=== PATIENT | female | born 1970 | race Caucasian/White ===

== ENCOUNTER 2022-04-06 09:27 | Outpatient (CLI) | payer OTHER, SELFPAY ==
[2022-04-06 14:53] LABS: Cholesterol* 165 mg/dL (90-199); Glucose* 90 mg/dL (60-115); HDL Cholesterol* 86 mg/dL (>=50); LDL Cholesterol Calculated 60 mg/dL (<100); Triglycerides* 97 mg/dL (40-149)
== END 2022-04-06 09:28 | disposition home or self-care (01) ==
LOC: NFLDREF 09:27
PROVIDERS: Visit Provider Physician Assistant
DX: Z13.6 Encounter for screening for cardiovascular disorders (principal); Z13.1 Encounter for screening for diabetes mellitus
CPT/HCPCS: 80061; 82947

== ENCOUNTER 2023-08-26 14:18 | Outpatient (CLI) | payer OTHER, SELFPAY ==
--- OUTSIDE RECORDS SUMMARY | 2023-08-26 14:20 | XMS_ITS ---
Author Organization [facility] Address [address] [place] [address] Care Team Providers Care Glass Forming Engineer Name Role Phone Unavailable Unavailable Unavailable Surgery Details Not on file Complications Check Surgery Details section. Procedure Estimated Blood Loss Check Surgery Details section. Procedure Findings Check Surgery Details section. Procedure Specimens Taken Check Surgery Details section.
--- OUTSIDE RECORDS SUMMARY | 2023-08-26 14:20 | XMS_ITS | Encounter Summary ---
Author Organization [facility] Address [address] [place] [address] Care Team Providers Care Work Counselor Name Role Phone Filiberto Hinton APRN, C.N.P. Primary Care Provid er Encounter Details Date Type Department Care Team (Late st Contact Info) Description 07/23/2023 Orders Only [facility] Filiberto Hinton, PRISCILLA, C.N.P. [address] [place] [address] Screening Examination Diabetes Mellitus; Screening Lipid Social History Tobacco Use Types Packs/Day Years Used Date Smoking Tobacco: Never Smokeless Tobacco: Never Alcohol Use Standard Drinks/Week Comments Yes 1 (1 standard drink = 0.6 oz pur e alcohol) PHQ-2 Answer Date Recorded PHQ-2 Score 0 08/25/2018 Nutrition Answer Date Recorded Nutrition: EVOO Fat Source Unknown 05/15 Nutrition: Servings of Fruits/Vegetables per Day Not on file 05/15/2020 Dental Answer Date Recorded Dental: Regular Dentist Unknown 05/15/19 21 Sex and Gender Information Value Date Recorded Sex Assigned at Female 06/20/2018 9:27 AM CDT Gender Identity Female 06/20/2018 9:27 AM CDT Sexual Orientation Straight 06/20/2018 9: 27 AM CDT documented as of this encounter Plan of Treatment Scheduled Orders Name Type Priority Associated Diagnoses Orde r Schedule Glucose, Fasting Lab Routine Screening Examination Diabetes Mellitus Expected: 08/06/2023, Expires: 01/19/2024 Lipid Panel Lab Routine Screening Lipid Expected: 08/06/2023, Expires: 01/19/2024 documented as of this encounter Visit Diagnoses Diagnosis Screening Examination Diabetes Mellitus Screening Lipid documented in this encounter Care Teams Work Counselor Relationship Specialty Start Date End Date Filiberto Hinton APRN, C.N.P. [address] [place] [phone] PCP - General 10/01/18 documented as of this encounter
--- OUTSIDE RECORDS SUMMARY | 2023-08-26 14:20 | XMS_ITS | Clinical Summary ---
Author Organization [facility] Address [address] [place] [address] Care Team Providers Care Manager Cosmetic Name Role Phone Filiberto Hinton APRN C.N.P. Primary Care Provid er Source Comments Patient records contain information from all sites at [facility]. For routine questions regarding patient records, call [phone] during business hours, M-F 8:00 AM - 5:00 PM Central Time. Record requests for emergency care only can be directed to [phone] at any time.[facility] Allergies No known active allergies Medications Medication Sig Dispensed Refills Start Date End Date Status Kelnor , 28, 1-35 mg-mcg per tabletIndications:M anagement Contraception Prescription Take 1 tablet by mouth once daily 84 tablet 06/11/2019 Active ferrous sulfate 325 mg (65 mg iron) tabletIndications:A nemia Iron Deficiency Take 1 tablet by mouth once daily 30 tablet 07/23/2019 Active SUMAtriptan (IMITREX) 50 mg tabletIndications:M igraine Headache Take 1 tablet (50 mg total) by mouth once as needed for migraine for up to 1 dose. May repeat in 2 hours if no relief. Max 2 doses/24 hrs 18 tablet 08/28/2019 Active valACYclovir (VALTREX) 1000 mg tablet Take 2 tablets (2,000 mg total) by mouth 2 (two) times a day. 4 tablet 11 08/05/2023 Active multivitamin chewable tablet Chew 1 Dose daily. 06/28/2005 4 Discontinued valACYclovir (VALTREX) 500 mg tablet TAKE 2 TABLETS BY MOUTH EVERY 12 HOURS FOR 2 DAYS. TAKE DURING OUTBREAKS 07/23/2023 Discontinued Active Problems Problem Noted Date Diagnosed Date Herpes Simplex Labialis 08/05/2023 Management Contraception Prescription 06/20/2018 Anemia Iron Deficiency 06/20/2018 Migraine Headache 07/29/2013 Encounters Date Type Department Care Team Description 08/05/2023 4:00 PM CDT Office Visit Department of [facility], [facility], in [place], [place] [address] [phone] Filiberto Hinton, PRISCILLA, C.N.P. Preoperative Exam (Primary Dx); Herpes Simplex Labialis 07/23/2023 Orders Only [facility] MNT Filiberto Hinton, PRISCILLA, C.N.P. Screening Examination Diabetes Mellitus; Screening Lipid 06/05/2023 Clinical Communication Department of [facility], [facility], [place], [place] [address] [phone] Filiberto Hinton, PRISCILLA, C.N.P. COLONOSCOPY ORDER 06/03/2023 Clinical Communication Department of [facility], [facility], in [place], [place] [address] [phone] Filiberto Hinton, PRISCILLA, C.N.P. from Last 3 Months Immunizations Name Administration Dates Next Due DTaP (Infanrix, Tripedia) 07/13/2008 Influenza, Seasonal, Injectable 12/04/2011,12/19,12/26/2009 Influenza, Unspecified 05/02/2016,12/26/2009 SARS-COV-2 (COVID-19) - OLIVIA TOLEDO (J&J)(Discontinued) 06/23/2020 influenza vaccine quad (FLUZ ONE/FLUARIX) (6 months and older)(PF) 05/02/2016 Family History * Patient is adopted Medical History Relation Name Comments Diabetes Father Hypertension Father Cancer Maternal Grandfather Cancer Maternal Grandmother Cancer Paternal Grandfather Cancer Paternal Grandmother Relation Name Status Comments Father Maternal Grandfather Maternal Grandmother Paternal Grandfather Paternal Grandmother Social History Tobacco Use Types Packs/Day Years Used Date Smoking Tobacco: Never Smokeless Tobacco: Never Comments:Never Alcohol Use Standard Drinks/Week Comments Yes 1 (1 standard drink = 0.6 oz pur e alcohol) [facility] Utilities Answer Date Recorded In the past 12 months has th e electric, gas, oil, or water company threatened to shut off services in your home? No 07/30/2023 PHQ-2 Answer Date Recorded PHQ-2 Score 0 07/30/2023 Exercise Vital Sign Answer Date Recorde d On average, how many days pe r week do you engage in moderate to strenuous exercise (like a brisk walk)? 5 days 07/30/2023 On average, how many minutes do you engage in exercise at this level? 40 min 07/30/2023 Hunger Vital Sign Answer Date Recorded Within the past 12 months, y ou worried that your food would run out before you got the money to buy more. Never true 07/30/19 Within the past 12 months, t he food you bought just didn't last and you didn't have money to get more. Never true 07/30/2023 PRAPARE - Transportation Answer Date Re corded In the past 12 months, has l ack of transportation kept you from medical appointments or from getting medications? No 07/16 In the past 12 months, has l ack of transportation kept you from meetings, work, or from getting things needed for daily living? No 07/30/2023 Nutrition Answer Date Recorded On average, how many serving s of fruits and vegetables do you eat per day (serving size is equal to 1 cup or approximately the size of a tennis ball)? 3-5 07/30/2023 Dental Answer Date Recorded Dental: Regular Dentist Yes 07/30/19 Employment Answer Date Recorded Employment status Retired 07/30/2023 Housing Stability Answer Date Recorded What is your living situation today? I have a [facility] place to live 07/30/2023 Sex and Gender Information Value Date Recorded Sex Assigned at Female 06/20/2018 9:27 AM CDT Gender Identity Female 06/20/2018 9:27 AM CDT Sexual Orientation Straight 06/20/2018 9: 27 AM CDT Last Filed Vital Signs Vital Sign Reading Time Taken Comments Blood Pressure 123/67 08/05/2023 3:43 PM CDT Pulse 51 08/05/2023 3:43 PM CDT Temperature 36.9 ??C (98.4 ??F) 06/20/2018 1 0:15 AM CDT Respiratory Rate 16 06/20/2018 10:1 5 AM CDT Oxygen Saturation - - Inhaled Oxygen Concentration - - Weight 76.1 kg (167 lb 12.3 oz) 08/05/2023 3:43 PM CDT Height 176 cm (5' 9.29) 08/05/2023 3:43 PM CDT Body Mass Index 24.57 08/05/2023 3:43 PM CDT Plan of Treatment Health Maintenance Due Date Last Done Comments CT Colonography 1972 Cologuard 1970 FIT 1970 HIV Screening 1970 Hepatitis C Screening 1970 Hepatitis B Vaccines (1 of 3 - 19+ 3-dose series) 08/18/1991 Mammogram 06/21/2019 06/20/2018, 05/2017, 05/08/2016, Additional history exists Fasting Glucose for Diabetes Screening 06/18/2020 06/18/2017, 12/18/2012 Lipid (Cholesterol) Screening 06/18/2022 06/18/2017, 12/18/2012 Zoster Vaccines (1 of 2) 2022 COVID-19 Vaccine ( - 2022- season) 2022 01/19/2021, 06/23/2020 Influenza Vaccine (#1) 2022 7, 05/02/2016, 12/04/2011, Additional history exists Cervical Cancer Screening 08/20/20242019, 03/30/2015, 12/16/2012, Additional history exists DTaP,Tdap,and Td Vaccines (3 - Tdap) 05/02/2033 05/02/2023, 07/13/2008 Colonoscopy 08/12/2033 08/13/2023 Colorectal Cancer Screening 08/12/2033 Depression Screening (Annual PHQ-2) Completed 08/05/2023, 07/30/2023 Pneumococcal vaccine (0-64 years) Aged Out No longer eligible based on patient's age to complete this topic Procedures Procedure Name Priority Date/Time Associated Diagnosis Comments OUTSIDE PHOTO Routine 08/13/2023 12:00 AM CDT BI BREAST SCREENING BILATERAL WITH TOMOSYNTHESIS RAD - Routine (most inpatients and all outpatients) 06/20/2018 11:50 AM CDT Screening Mammogram Breast Cancer GLUCOSE, FASTING, S/P Routine 06/18/2017 10:44 AM CDT Health Maintenance Examination Adult LIPID PANEL, S Routine 06/18/2017 10:44 AM CDT Health Maintenance Examination Adult PATHOLOGY DIRECTOR OF PHYSICIAN PRACTICES CYTOLOGY Routine 03/30/2015 12:00 AM BUSINESS SERVICES OFFICER from Last 3 Months or Most Recently Relevant to Health Maintenance Results * Colon-Outside Photo (08/13/2023 12:00 AM CDT) Narrative [facility] - 08/16/2023 3:29 PM CDT This order has been created and auto-finalized to support the import of outside images. If available, original interpretation can be found on the Media Tab in Chart Review, in Document Viewer, or as an image in QREADS. If a re-interpretation or overread is required please follow defined workflow. ?? Provider Not In System IMG NON RAD IMAGI NG PROCEDURES [facility] NA * BI Breast Screening Bilateral with Tomosynthesis (06/20/2018 11:50 AM CDT) Anatomical Region Laterality Modality Breast, Breast Imaging RST L OS, Breast Imaging ARZ LOS, Breast Imaging FLA LOS Bilateral Mammography 06/20/2018 3:09 PM CDT Impressions 06/20/2018 3:13 PM CDT IMPRESSION: ??Negative. RECOMMENDATION: ??Annual Screening Mammogram ASSESSMENT: ??BI-RADS: 1: Negative. Narrative 06/20/2018 3:13 PM CDT EXAM: ??BI BREAST SCREENING BILATERAL WITH TOMOSYNTHESIS Current study was evaluated with a Computer Aided Detection (CAD) system. INDICATION: ??Screening mammogram. COMPARISON: ??Prior exam(s) were available and reviewed for comparison. DENSITY: ??c. The breast(s) are heterogeneously dense, which may obscure small masses. FINDINGS: ??No mammographic findings of malignancy. Procedure Note Lenora Vergara M.D. - 06/20/2018 EXAM: BI BREAST SCREENING BILATERAL WITH TOMOSYNTHESIS Current study was evaluated with a Computer Aided Detection (CAD) system. INDICATION: Screening mammogram. COMPARISON: Prior exam(s) were available and reviewed for comparison. DENSITY: c. The breast(s) are heterogeneously dense, which may obscuresmall masses. FINDINGS: No mammographic findings of malignancy. IMPRESSION: Negative. RECOMMENDATION: Annual Screening Mammogram ASSESSMENT: BI-RADS: 1: Negative. Beryl Martínez M.D. [facility] [place] BI PROCEDURE S * (ABNORMAL) Lipid Panel (06/18/2017 10:44 AM CDT) Cholesterol, Total 230(H) mg/dL 2017 12:12 PM CDT [facility] Comment: ----REFERENCE VALUE---- Desirable: < 200 Borderline high: 200 - 239 High: > or = 240 Triglycerides 77 mg/dL 06/18/2017 12:12 PM CDT [facility] Comment: ----REFERENCE VALUE---- Normal: <150 Borderline high: 150-199 High: 200-499 Very high: > or =500 Cholesterol, HDL, S 109 >=50 mg/dL 06/18/2017 12:12 PM CDT [facility] Calculated LDL 106 mg/dL 06/18/2017 12:12 PM CDT [facility] Comment: ----REFERENCE VALUE---- Desirable: <100 Above Desirable: 100-129 Borderline high: 130-159 High: 160-189 Very high: > or =190 Cholesterol, Non-HDL, Calculated 121 mg/dL 06/18/2017 12:12 PM CDT [facility] Comment: ----REFERENCE VALUE---- Desirable: <130 Above Desirable: 130-159 Borderline high: 160-189 High: 190-219 Very high: > or =220 Blood (Blood, Venous) 06/18/2017 10:44 AM CDT 06/18/2017 10:51 AM CDT Speedy Strickland P.A.-C. LAB BLOOD ADD-ON Performing Organization Address City/[facility]/ZIP Co de Phone Number [facility] [address] [place], [place] [address] * Glucose, Fasting (06/18/2017 10:44 AM CDT) Glucose, Fasting, S 93 70 - 99 mg/dL 06/18/2017 12:12 PM CDT [facility] Blood (Blood, Venous) 06/18/2017 10:44 AM CDT 06/18/2017 10:51 AM CDT Speedy Strickland P.A.-C. LAB BLOOD NON AD D-ON Performing Organization Address City/[facility] Co de Phone Number [facility] [address] [place], [place] [address] * Pathology DIRECTOR OF PHYSICIAN PRACTICES Cytology (03/30/2015 12:00 AM BUSINESS SERVICES OFFICER) 03/30/2015 Narrative [facility] - 04/08/2015 12:53 PM BUSINESS SERVICES OFFICER [facility] in [address] [place], [place] ??[phone] Patient Name: PRICE ALBRECHT Collected: 03/30/2015 Address: City/State/Zip: [address] [place] [address] ??[phone] Received: Reported: 03/31/2015 04/08/2015 Soc. Sec. #: ?/Age/Sex 1970 (Age: 44) ??F Physician(s): Miesha MEDRANO Copy To: ? [facility] ??[id number] [address] [facility] CYTOPATHOLOGY DIRECTOR OF PHYSICIAN PRACTICES REPORT FINAL CYTOLOGIC DIAGNOSIS Pap Smear - ThinPrep with HPV: NEGATIVE FOR INTRAEPITHELIAL LESION OR MALIGNANCY SPARSE TO NO ENDOCERVICAL COMPONENT PRESENT. SATISFACTORY SPECIMEN FOR EVALUATION. Electronically Signed Out By dls/04/08/[address] [facility] [address](ASCP) The Pap test is a screening procedure and, as such, is subject to both false positive and false negative results as evidenced by published data. ??It is not a diagnostic test and results should be interpreted in the context of the patient's history and other clinical findings. ??Obtaining periodic Pap tests may help to minimize the consequences of any false negatives that may occur. Procedures/Addenda: HUMAN PAPILLOMA VIRUS ADDENDUM ? Date Ordered: ? 03/31/2015 ? Status: ??Signed Out Date Complete: ? 04/08/2015 ? By: ??[facility](ASCP) Date Reported: ? 04/08/2015 INTERPRETATION: Test: Aptima High Risk HPV Result: NEGATIVE FOR HIGH RISK HPV Specimen Description: ThinPrep? ? ? Pap Test PreservCyt Solution HPV by [employer]-Mediated Amplification (TMA) for E6/E7 viral messenger RNA (mRNA) is an in-vitro diagnostic test for the detection of 14 high-risk Human Papillomavirus (HPV) types (16, 18, 31, 33, 35, 39, 45, 51, 52, 56, 58, 59, 66, and 68) in cervical specimen. Intended for co-testing or reflex testing of ASC-US Pap smears. Interpretation for patients with ASC-US cytology: Low likelihood of underlying high-grade CIN2-3 or cancer; results are not intended to prevent women from proceeding to colposcopy. Interpretation for patients with NILM cytology who are over 30 years old: Very low likelihood of underlying high-grade ASHLEY or cancer; results do not preclude future HPV infection or cytologic abnormalities with underlying CIN2-3 or cancer. SPECIMEN(S) RECEIVED: Pap Smear - ThinPrep with HPV CLINICAL HISTORY: CONTROL Date of Last Menstrual Period: 03/14/2015 Hormonal History: Hormone therapy Other Clinical Conditions: HPV TYPING REQUESTED Radha Medrano P.A.-C. LAB PAP COPATH ORDERABLES [facility] from Last 3 Months or Most Recently Relevant to Health Maintenance Care Teams Manager Cosmetic Relationship Specialty Start Date End Date Filiberto Hinton, PRISCILLA, C.N.P. [address] [place] [phone] PCP - General 10/01/18
--- OUTSIDE RECORDS SUMMARY | 2023-08-26 14:20 | XMS_ITS | Encounter Summary ---
Author Organization [facility] Address [address] [place] [address] Care Team Providers Care Break Out Man Name Role Phone Filiberto Hinton APRN, C.N.P. Primary Care Provid er Reason for Visit * Reason Comments Pre-op Exam Colonoscopy * Appointment Request (Routine) - Closed Specialty Diagnoses / Procedures Referred By Contanny t Referred To Contact Family Medicine Referral ID Status Reason Start Date Expiration Date Visits Re quested Visits Authorized [id number] Closed 06/17/2023 06/16/2024 1 1 Encounter Details Date Type Department Care Team (Late st Contact Info) Description 08/05/2023 4:00 PM CDT Office Visit Department of Family Medicine, [facility], in [place], [place] [address] [phone] Filiberto Hinton APRN, C.N.P. [address] [place] [phone] Preoperative Exam (Primary Dx); Herpes Simplex Labialis Social History Tobacco Use Types Packs/Day Years Used Date Smoking Tobacco: Never Smokeless Tobacco: Never Comments:Never Alcohol Use Standard Drinks/Week Comments Yes 1 (1 standard drink = 0.6 oz pur e alcohol) [facility] Utilities Answer Date Recorded In the past 12 months has e electric, gas, oil, or water company [...] your living situation today? I have a [facility] place to live 07/30/2023 Sex and Gender Information Value Date Recorded Sex Assigned at Female 06/20/2018 9:27 AM CDT Gender Identity Female 06/20/2018 9:27 AM CDT Sexual Orientation Straight 06/20/2018 9: 27 AM CDT documented as of this encounter Last Filed Vital Signs Vital Sign Reading Time Taken Comments Blood Pressure 123/67 08/05/2023 3:43 PM CDT Pulse 51 08/05/2023 3:43 PM CDT Temperature - - Respiratory Rate - - Oxygen Saturation - - Inhaled Oxygen Concentration - - Weight 76.1 kg (167 lb 12.3 oz) 08/05/2023 3:43 PM CDT Height 176 cm (5' 9.29) 08/05/2023 3:43 PM CDT Body Mass Index 24.57 08/05/2023 3:43 PM CDT documented in this encounter Patient Instructions * Patient Instructions* Filiberto Hinton APRN, C.N.P. - 08/05/2023 4:00 PM CDT -hold any qxkx-jry-rutawcx medications you are taking 5 days prior to the procedure. documented in this encounter Progress Notes * Filiberto Hinton APRN, Miesha.N.P. - 08/05/2023 4:00 PM CDT SUBJECTIVE CHIEF COMPLAINT/REASON FOR VISIT Annabelle Hardy is a 52 y.o. female who presents for evaluation of Pre-op Exam (Colonoscopy ). HISTORY OF PRESENT ILLNESS Annabelle Hardy is here for a preoperative exam prior [facility] [facility] There have been no prior complications or problems with anesthesia. There is no family medical history of problems with anesthesia or malignant hyperthermia. The patient has no known bleeding or clotting disorders. The patient has not been diagnosed with sleep apnea. The patient is not diabetic. There are no sensitivities to tape or latex. The patient does not use blood thinners. The patient is a non smoker. She has a history of herpes simplex labialis and would like a refill of her Valtrex. REVIEW OF SYSTEMS General: No complaints of unintentional weight loss. No recent fevers. EENT: No sore throat or difficulty swallowing. No loose teeth. Neck: No problems with neck range of motion. Pulmonary: No shortness of breath, persistent cough, wheezing, or excessive snoring. Cardiac: No chest pain, rapid or irregular beats, or swelling in extremities. Gastrointestinal: No heartburn, nausea, vomiting, constipation, diarrhea, or abdominal pain. Genitourinary: No burning/pain with urination. Musculoskeletal: No muscle weakness, back pain, or joint pain. Skin: No skin rashes, skin sores, or excessive bruising. Neurological: No significant headaches, persistent weakness or numbness on one side of body, or recent falls. Endocrine: No excessive thirst or urination. Mental: No unmanaged depression or anxiety. MEDICAL HISTORY Patient Active Problem List Diagnosis Migraine Headache Management Contraception Prescription Anemia Iron Deficiency Herpes Simplex Labialis SURGICAL HISTORY Past Surgical History: Procedure Laterality Date EXCISION OF LESION OF OVARY N/A 09/25/2001 Laparoscopy, surgical; with fulguration or excision of lesions of the ovary, pelvic viscera, or peritoneal surface by any method.. FAMILY HISTORY Family History Adopted: Yes Problem Relation Name Age of Onset Hypertension Father Diabetes Father Cancer Maternal Grandmother Cancer Maternal Grandfather Cancer Paternal Grandmother Cancer Paternal Grandfather SOCIAL HISTORY Social History Tobacco Use Smoking status: Never Smokeless tobacco: Never Tobacco comments: Never Substance Use Topics Alcohol use: Yes Alcohol/week: 1.0 standard drink of alcohol Types: 1 Standard drinks or equivalent per week CURRENT MEDICATIONS Current Outpatient Medications Medication Sig Dispense Refill ferrous sulfate 325 mg (65 mg iron) tablet Take 1 tablet by mouth once daily 30 tablet 0 Kelnor 1/35, 28, 1-35 mg-mcg per tablet Take 1 tablet by mouth once daily 84 tablet 0 SUMAtriptan (IMITREX) 50 mg tablet Take 1 tablet (50 mg total) by mouth once as needed for migrainefor up to 1 dose. May repeat in 2 hours if no relief. Max 2 doses/24 hrs 18 tablet 0 valACYclovir (VALTREX) 1000 mg tablet Take 2 tablets (2,000 mg total) by mouth 2 (two) times a day.4 tablet 11 No current facility-administered medications for this visit. ALLERGIES/CONTRAINDICATIONS No Known Allergies OBJECTIVE VITAL SIGNS BP 123/67 (BP Location: Right arm, Patient Position: Sitting, Cuff Size: Regular) Pulse (!) 51 Ht 176 cm Wt 76.1 kg BMI 24.57 kg/m?? PHYSICAL EXAMINATION General: Patient is alert and oriented, in no acute distress. Capable of full communication withoutdifficulty. Patient is polite and cooperative. Appropriately dressed and normal hygiene. HEENT: Normocephalic, atraumatic. Pupils are equal, round and reactive to light. Auditory canals patent. Tympanic membranes are pearly way with adequate visualization of bony prominences. Nares are patent. Oropharynx without lesion of mucosa. Pharynx rises symmetrically without exudate. Dentition grossly intact. Neck: No lymphadenopathy. No thyroid enlargement or nodules. Neck is supple with normal range of motion. Cardiac: Regular rate and rhythm. No murmurs, gallops or rubs noted. No S3, no S4. Pulmonary: Regular rate and rhythm of respirations. Clear to auscultation bilaterally. No wheezing or crackles. No accessory muscles of respiration noted. Abdomen: Nontender to palpation. No hepatosplenomegaly. No mass. Normal bowel sounds in all 4 quadrants. Musculoskeletal: Normal range of motion in all extremities. Extremities: No neurovascular compromise. No cyanosis or clubbing. No edema. Skin: No rashes or wounds. No evidence of excessive bruising. Neurological: Cranial nerves 2-12 are grossly intact. Deep tendon reflexes are 2+ bilaterally in patellar tendons. Mental: Affect is normal. Thought process is congruent. Speech is fluent. ASSESSMENT / PLAN #1 Preoperative Exam #2 Herpes Simplex Labialis Other orders - valACYclovir (VALTREX) 1000 mg tablet; Take 2 tablets (2,000 mg total) by mouth 2 (two) times a day., Starting 08/05/2023, Normal Patient is, at present, medically stable for the above procedure. There are no contraindications toanesthesia. The patient is cleared up to and including general anesthesia. Known cardiopulmonary risk factors include unknown. Functional capacity is >4 mets. The patient is aware that they need to be NPO after midnight the day of surgery. Further preoperative and postoperative recommendations have been given by the operating surgeon. Sleep Apnea: No known history of sleep apnea. Steroid Use Within the Past 12 Months: None. Diabetes: None. Bleeding Risk Factors: None. Anesthesia Reactions: None. Need for Prophylactic Antibiotics: None. Beta-Kaitlin: None. documented in this encounter Plan of Treatment Not on file documented as of this encounter Visit Diagnoses Diagnosis Preoperative Exam- Primary Herpes Simplex Labialis documented in this encounter Care Teams Break Out Man Relationship Specialty Start Date End Date Filiberto Hinton APRN, C.N.P. [address] [phone] PCP - General 10/01/18 documented as of this encounter
--- OUTSIDE RECORDS SUMMARY | 2023-08-26 14:20 | XMS_ITS | Referral Summary ---
Author Organization [facility] Address [address] [place] [address] Care Team Providers Care Digital Strategist Name Role Phone Filiberto Hinton APRN, C.N.P. Primary Care Provid er Source Comments Patient records contain information from all sites at [facility]. For routine questions regarding patient records, call [phone] during business hours, M-F 8:00 AM - 5:00 PM Central Time. Record requests for emergency care only can be directed to [phone] at any time.[facility] Encounters Date Type Department Care Team Description 08/05/2023 4:00 PM CDT Office Visit Department of Family [facility], [facility], in [place], [place] [address] [phone] Filiberto Hinton APRN, C.N.P. Preoperative Exam (Primary Dx); Herpes Simplex Labialis 07/23/2023 Orders Only [facility] Filib[facility] Hinton APRN, C.N.P. Screening Examination Diabetes Mellitus; Screening Lipid 06/05/2023 Clinical Communication Department of Family [facility], [facility], in [place], [place] [address] [place] [phone] Filiberto Hinton APRN, C.N.P. COLONOSCOPY ORDER 06/03/2023 Clinical Communication Department of Family [facility], [facility], in [place], [place] [address] [place] [phone] Filiberto Hinton, PRISCILLA, C.N.P. from Last 3 Months Allergies No known active allergies Medications Medication Sig Dispensed Refills Start Date End Date Status Timbor , 28, 1-35 mg-mcg per tabletIndications:M anagement [...] FOR 2 DAYS. 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/05/2023 Management Contraception Prescription 06/20/2018 Anemia Iron Deficiency 06/20/2018 Migraine Headache 07/29/2013 Immunizations Name Administration Dates Next Due DTaP (Infanrix, Tripedia) 07/13/2008 Influenza, Seasonal, Injectable 12/04/2011,12/19,12/26/2009 Influenza, Unspecified 05/02/2016,12/26/2009 SARS-COV-2 (COVID-19) - OLIVIA TOLEDO (J&J)(Discontinued) 06/23/2020 influenza vaccine quad (FLUZ ONE/FLUARIX) (6 months and older)(PF) 05/02/2016 Social History Tobacco Use Types Packs/Day Years Used Date Smoking Tobacco: Never Smokeless Tobacco: Never Comments:Never Alcohol Use Standard Drinks/Week Comments Yes 1 (1 standard drink = 0.6 oz pur e alcohol) [facility] Utilities Answer Date Recorded In the past 12 months has th e [employer], gas, oil, or water company threatened to [...] your living situation today? I have a [facility] place to live 07/30/2023 Sex and [...] 08/05/2023 3:43 PM CDT Plan of Treatment Not on file Procedures Procedure Name Priority Date/Time Associated Diagnosis Comments OUTSIDE PHOTO Routine 08/13/2023 12:00 AM CDT BI BREAST SCREENING BILATERAL WITH TOMOSYNTHESIS RAD - Routine (most inpatients and all outpatients) 06/20/2018 11:50 AM CDT Screening Mammogram Breast Cancer GLUCOSE, FASTING, S/P Routine 06/18/2017 10:44 AM CDT Health Maintenance Examination Adult LIPID PANEL, S Routine 06/18/2017 10:44 AM CDT Health Maintenance Examination Adult PATHOLOGY RN HOSPITAL CYTOLOGY Routine 03/30/2015 12:00 AM US MARKETING DIRECTOR from Last 3 Months or Most Recently [...] ASSESSMENT: BI-RADS: 1: Negative. Beryl Martínez M.D. [facility] [place] BI PROCEDURE S * (ABNORMAL) Lipid Panel (06/18/2017 10:44 AM CDT) Cholesterol, Total 230(H) mg/dL 2017 12:12 PM CDT [facility] Comment: ----REFERENCE VALUE---- Desirable: < 200 Borderline high: 200 - 239 High: > or = 240 Triglycerides 77 mg/dL 06/18/2017 12:12 PM CDT [facility] Comment: ----REFERENCE VALUE---- Normal: <150 Borderline high: 150-199 High: 200-499 Very high: > or =500 Cholesterol, HDL, S 109 >=50 mg/dL 06/18/2017 12:12 PM CDT [facility] Calculated LDL 106 mg/dL 06/18/2017 12:12 PM CDT [facility] Comment: ----REFERENCE VALUE---- Desirable: <100 Above Desirable: 100-129 Borderline high: 130-159 High: 160-189 Very high: > or =190 Cholesterol, Non-HDL, Calculated 121 mg/dL 06/18/2017 12:12 PM CDT [facility] Comment: ----REFERENCE VALUE---- Desirable: <130 Above Desirable: 130-159 Borderline high: 160-189 High: 190-219 Very high: > or =220 Blood (Blood, Venous) 06/18/2017 10:44 AM CDT 06/18/2017 10:51 AM CDT Speedy Strickland P.A.-C. LAB BLOOD ADD-ON Performing Organization Address [facility] Co de Phone Number [facility] [address] [place] [address] * Glucose, Fasting (06/18/2017 10:44 AM CDT) Glucose, Fasting, S 93 70 - 99 mg/dL 06/18/2017 12:12 PM CDT [facility] Blood (Blood, Venous) 06/18/2017 10:44 AM CDT 06/18/2017 10:51 AM CDT Speedy Strickland P.A.-C. LAB BLOOD NON AD D-ON Performing Organization Address City/[facility] Co de Phone Number [facility] [address] [place] [address] * Pathology RN HOSPITAL Cytology (03/30/2015 12:00 AM US MARKETING DIRECTOR) 03/30/2015 Narrative [facility] - 04/08/2015 12:53 PM US MARKETING DIRECTOR [facility] in [address] [place], [place] ??[phone] Patient Name: PRICE ALBRECHT Collected: 03/30/2015 Address: City/State/Zip: [address] [place], [place] ??[id number] Received: Reported: 03/31/2015 04/08/2015 Soc. Sec. #: ?/Age/Sex 1970 (Age: 44) ??F Physician(s): Miesha MEDRANO Copy To: ? [facility] ??[phone] [facility], ??[place] ??[address] CYTOPATHOLOGY RN HOSPITAL REPORT FINAL CYTOLOGIC DIAGNOSIS Pap Smear - ThinPrep with HPV: NEGATIVE FOR INTRAEPITHELIAL LESION OR MALIGNANCY SPARSE TO NO ENDOCERVICAL COMPONENT PRESENT. SATISFACTORY SPECIMEN FOR EVALUATION. Electronically Signed Out By dls/04/08/2015 [facility](ASCP) The Pap test is a screening procedure [...] Out Date Complete: ? 04/08/2015 ? By: ??[facility](ASCP) Date Reported: ? 04/08/2015 INTERPRETATION: Test: Aptima High Risk HPV Result: NEGATIVE FOR HIGH RISK HPV Specimen Description: ThinPrep? ? ? Pap Test PreservCyt Solution HPV by Gill Box Fixer-Mediated Amplification (TMA) for E6/E7 viral messenger RNA [...] Recently Relevant to Health Maintenance Care Teams Digital Strategist Relationship Specialty Start Date End Date Filiberto Hinton, PRISCILLA, C.N.P. [address], [place] [phone] PCP - General 10/01/18
--- OUTSIDE RECORDS SUMMARY | 2023-08-26 14:20 | XMS_ITS | Clinical Summary ---
Author Organization [facility] Address [place], [place] [address] Care Team Providers Care Transportation Planner Name Role Phone [facility] Allergies No known active allergies Medications Medication Sig Dispensed Refills Start Date End Date Status ferrous sulfate, 65 mg elemental, tablet Take 325 mg by mouth once daily. Active ethynodiol diac-eth estradiol, 1-35 mg-mcg, (Kelnor ,) tablet Take 1 Tablet by mouth once daily. Active SUMAtriptan (Imitrex) 50 mg tablet Take 50 mg by mouth 2 times daily if needed for Migraine. Give at minimum 2hrs apart. Max Dose: 200mg per 24hrs. Active MULTIVITAMIN ORAL Take by mouth. Act ross Encounters Date Type Department Care Team Description 08/13/2023 12:57 PM CDT Anesthesia Event [facility] [address] [place] [address] Denver Edmondson III, MD 08/13/2023 12:51 PM CDT - 08/13/2023 1:25 PM CDT Surgery [facility] [address] [place] [address] Matthew Morrison MD COLONOSCOPY 08/13/2023 11:16 AM CDT - 08/13/2023 2:22 PM CDT Hospital Encounter [facility] [address] [place] [address] Matthew Morrison MD Discharge Disposition: Home Self Care 08/13/2023 Travel 08/07/2023 Travel from Last 3 Months Social History Tobacco Use Types Packs/Day Years Used Date Smoking Tobacco: Never Smokeless Tobacco: Never Tobacco Cessation:Counseling Given: Not Answered Alcohol Use Standard Drinks/Week Comments Yes 0 (1 standard drink = 0.6 oz pur e alcohol) Sex and Gender Information Value Date Recorded Sex Assigned at Not on file Gender Identity Not on file Sexual Orientation Not on file Obstetrics History Last Filed Vital Signs Vital Sign Reading Time Taken Comments Blood Pressure 112/50 08/13/2023 2:05 PM CDT Pulse 47 08/13/2023 2:05 PM CDT Temperature 36.3 ??C (97.4 ??F) 08/13/2023 1:37 PM CD T Respiratory Rate 16 08/13/2023 2:05 PM CDT Oxygen Saturation 100% 08/13/2023 2:05 PM CDT Inhaled Oxygen Concentration - - Weight 73.9 kg (163 lb) 08/13/2023 11:36 AM CDT Height - - Body Mass Index - - Plan of Treatment Health Maintenance Due Date Last Done Comments Tdap 08/18/1983 Depression screening for age 12+ 1984 HIV for age 15-65 08/18/1987 BMI (ht and wt on same day) for age 18+ 1990 Hepatitis C screening for ag e 18-79 1990 Tetanus booster 1992 Lipids for age 45-75 2017 Mammogram for age 45-75 2017 Zoster (shingles) series for age 50+ (1 of 2) 2022 Pap test for age 21-65 08/20/2022 0, 08/21/2019 COVID-19 vaccine series (2022- season) 2022 01/19/2021, 06/23/2020 Influenza for age 50-64 11/17/2023 Colonoscopy through age 75 08/12/2033 08/13/2023 Pneumococcal series for age 6-64 Aged Out No longer eligible b ased on patient's age to complete this topic Procedures Procedure Name Priority Date/Time Associated Diagnosis Comments COLONOSCOPY 08/13/2023 12:57 PM CDT Normal exam Case Notes Miralax/Dulcolax Special Needs [id number] COLONOSCOPY 08/13/2023 12:56 PM CDT SUPPORT SERVICES SPECIALIST THIN PREP PAP SCREEN IMAGED Routine 08/21/2019 12:00 PM CDT from Last 3 Months or Most Recently Relevant to Health Maintenance Results * COLONOSCOPY (08/13/2023 12:56 PM CDT) 08/13/2023 12:5 6 PM CDT Narrative Transcriptions Matthew Morrison MD - 08/13/2023 1:36 PM CDT Patient Name: Annabelle Hardy Procedure Date: 08/13/2023 Gender: Female Date of : 1970 Admit Type: Ambulatory Procedure: Colonoscopy Proceduralist: Moris Morrison MD [facility] Indications/Pre-Op Diagnosis: Screening for colorectal malignantneoplasm Medications: Monitored Anesthesia Care Procedure Description: The procedure, indications, potential complications, (bleeding, perforation, infection, adverse medication reaction, missed lesionsor polyps) and alternatives available were explained to the patient, who appeared to understand and indicated this. Opportunity for questionswas provided and informed consent obtained. The endoscope [id number]-[id number] was passed through the anus andadvanced to the cecum, identified by appendiceal orifice and ileocecal valve.The colonoscopy was performed with ease. The patient tolerated theprocedure well. The quality of the bowel preparation was evaluated using theBBPS ([place] Bowel Preparation Scale) with scores of: Right Colon = 3, Transverse Colon = 3 and Left Colon = 3 (entire mucosa seen well withno residual staining, small fragments of stool or opaque liquid). Thetotal BBPS score equals 9. Complications: No immediate complications. Estimated Blood Loss & Specimen: Estimated blood loss: none. Specimen collected: None Findings: The perianal and digital rectal examinations were normal. Pertinent negatives include normal sphincter tone. Normal appearing ileocecal valve The colon (entire examined portion) appeared normal. The exam was otherwise without abnormality on direct and retroflexion views. Impressions/Post-Op Diagnosis: - The entire examined colon is normal. - The examination was otherwise normal on direct and retroflexionviews. - No specimens collected. Recommendation: - Repeat colonoscopy in 10 years for screening purposes. Moderate Sedation: Deep sedation per anesthesia. Moris Morrison MD 08/13/2023 1:36:32 PM This report has been signed electronically. Note Initiated On: 08/13/2023 12:56 PM Matthew Morrison MD PROCEDURE ORD * SUPPORT SERVICES SPECIALIST THIN PREP PAP SCREEN IMAGED (08/21/2019 12:00 PM CDT) Case Report Gynecologic Cytology Report ? Case: [id number] ? Authorizing Provider: ??Ewelina Galaviz ??Collected: ? 08/21/2019 1200 ? MD Adele ? Ordering Location: ? [facility] ?Received: ?08/25/2019 0951 ? First Screen: ?Melissa Bennett ? Specimen: ?SUPPORT SERVICES SPECIALIST ThinPrep Vial Screening, Cervical/Vaginal ? 08/28/2019 2:23 PM CDT [facility] INTERPRETATION/ RESULT NEGATIVE FOR INTRAEPITHELIAL LESION OR MALIGNANCY (NIL) (none) 08/28/2019 2:23 PM T [facility] NISM(S) Fungal organisms morphologically consistent with Concepcion species 08/28/2019 2:23 PM T [facility] SPECIMEN ADEQUACY Satisfactory for evaluation No endocervical component seen 08/28/2019 2:23 PM T [facility] HPV REQUEST HPV and PAP 08/28/2019 2:23 PM [facility] Date of LMP 08/05/2019 08/28/2019 2:23 PM [facility] Last Pap Result First Pap/Unknown 2:23 PM [facility] Additional Information 08/28/2019 2:23 PM T [facility] Comment: Interpreted at [facility], Central Laboratory - [address], [place] [address] Automated Review Successful 08/28/2019 2:23 PM [facility] Comment:Specimen processed s uccessfully by automated prison warden device, ThinPrep Imaging System, [employer] ANCILLARY TESTING SUPPORT SERVICES SPECIALIST HPV Ordered, Please see separate report 08/28/2019 2:23 PM CDT [facility] Note The pap test is a screening technique, not a diagnostic procedure. It is used primarily to screen for squamous cancers and precursor lesions. Published studies have shown that it is subject to both false negative and false positive results. The pap test should not be used as the sole means to diagnose or exclude pre-malignant and malignant lesions. 08/28/2019 2:23 PM CDT [facility] Other (Cervical/Vagina l) 08/21/2019 12:00 PM CDT 08/25/2019 9:51 AM CDT Ewelina Galaviz MD PATHOLOGY/ CYTOLOGY [facility] LAB[facility]ATORY [address] [place] [address], [place] from Last 3 Months or Most Recently Relevant to Health Maintenance Advance Directives * Full Code (Latest Code Status on File) Date Activated Date Inactivated Comments 08/13/2023 11:22 AM 08/13/2023 5:08 PM Question Answer Comments Code Status Discussion: Reviewed Preferences Care Teams Transportation Planner Relationship Specialty Start Date End Date Subhash [facility] - [address] [place] [phone] PCP - General 08/13/23
--- OUTSIDE RECORDS SUMMARY | 2023-08-26 14:21 | XMS_ITS | Encounter Summary ---
Author Organization [facility] Address [address] [place] [address] Care Team Providers Care Coach Driver Name Role Phone Filiberto Hinton APRN, C.N.P. Primary Care Provid er Reason for Visit * Reason Onset Date Comments COLONOSCOPY ORDER 06/05/2023 Encounter Details Date Type Department Care Team (Latest Contact Info) Description 06/05/2023 Clinical Communication Department of Family Medicine, [facility], in [place], [place] [address] [phone] Filiberto Hinton APRN, C.N.P. [address] [phone] COLONOSCOPY ORDER Social History Tobacco Use Types Packs/Day Years [...] as of this encounter Plan of Treatment Not on file documented as of this encounter Visit Diagnoses Not on filedocumented in this encounter Care Teams Coach Driver Relationship Specialty Start Date End Date Filiberto Hinton APRN, C.N.P. [address] [place] [phone] PCP - General 10/01/18 documented as of this encounter
--- OUTSIDE RECORDS SUMMARY | 2023-08-26 14:21 | XMS_ITS | Encounter Summary ---
Author Organization [facility] Address [address] [place] [address] Care Team Providers Care Alumina Refinery Operator Name Role Phone Filiberto Hinton APRN, C.N.P. Primary Care Provid er Encounter Details Date Type Department Care Team (Late st Contact Info) Description 06/03/2023 Clinical Communication Department of Family Medicine, [facility], in [place], [place] [address] [phone] Filiberto Hinton APRN, C.N.P. [address] [phone] Social History Tobacco Use Types Packs/Day Years [...] AM CDT documented as of this encounter Miscellaneous Notes * Telephone Encounter - Azalia Gorman, L.P.N. - 06/04/2023 11:50 AM CDT Form filled out and given to provider for signature documented in this encounter Plan of Treatment Not on file documented as of this encounter Visit Diagnoses Not on filedocumented in this encounter Care Teams Alumina Refinery Operator Relationship Specialty Start Date End Date Filiberto Hinton APRN, C.N.P. [address] [place] [phone] PCP - General 10/01/18 documented as of this encounter
--- NOTE | 2023-08-26 14:40 | CRLHL7_ITS ---
For Patients: As a result of the Century Cures Act, medical imaging exams and procedure reports are released immediately into your electronic medical record. You may view this report before your referring provider. If you have questions, please contact your health care provider. BILATERAL SCREENING MAMMOGRAM WITH COMPUTER-AIDED DETECTION AND TOMOSYNTHESIS TECHNIQUE: CC and MLO views were obtained. These mammographic images have been obtained using full-field digital technique. These mammographic images were interpreted with the benefit of computer-aided detection. Breast Tomosynthesis was used in this interpretation. COMPARISON FILM: 08/02/22, 12/12/20, 08/27/19. FINDINGS: There are scattered areas of fibroglandular density IMPRESSION: There is no radiographic evidence for malignancy. ASSESSMENT: BI-RADS Category 1: Negative RECOMMENDATION: Routine screening mammogram in 1 year. A lay language report of this examination will be provided to the patient. Everett Low M.D. Diagnostic Radiologist [email or web address] AGUSTIN/Dictated by: Everett Low MD @ 08/27/2023 9:06:00 AM (Electronically Signed)
== END 2023-08-26 14:19 | disposition home or self-care (01) ==
LOC: MAMMO 14:18
PROVIDERS: Visit Provider Obstetrics & Gynecology
DX: Z12.31 Encounter for screening mammogram for malignant neoplasm of breast (principal)
CPT/HCPCS: 77063; 77067

== ENCOUNTER 2024-07-14 12:58 | Outpatient (CLI) | payer OTHER, SELFPAY ==
[2024-07-18 04:50] LABS: HPV Source Cervical; HPV, High Risk by TMA Not Detected
== END 2024-07-14 12:59 | disposition home or self-care (01) ==
PROVIDERS: Visit Provider Obstetrics & Gynecology
DX: Z12.4 Encounter for screening for malignant neoplasm of cervix (principal); Z11.51 Encounter for screening for human papillomavirus (HPV)
CPT/HCPCS: 87624; 87625; 88141; 88142

== ENCOUNTER 2024-08-31 15:03 | Outpatient (CLI) | payer OTHER, SELFPAY ==
--- NOTE | 2024-08-31 15:20 | CRLHL7_ITS ---
For Patients: As a result of the Century Cures Act, medical imaging exams and procedure reports are released immediately into your electronic medical record. You may view this report before your referring provider. If you have questions, please contact your health care provider. INDICATION: BILATERAL SCREENING MAMMOGRAM, ASYMPTOMATIC 54 Y/O FEMALE COMPARISON: 08/26/2023, 08/02/2022, 12/12/2020 TECHNIQUE: Digital mammogram in CC and MLO projections including computer-aided detection (CAD) and tomosynthesis. BREAST COMPOSITION: The breasts are heterogeneously dense, which may obscure small masses. FINDINGS: No suspicious findings. ASSESSMENT: BI-RADS 1 Negative RECOMMENDATION: Annual screening mammogram. A lay language report of this examination will be provided to the patient. Dictated by: Everett Low MD @ 09/02/2024 10:29:41 (Electronically Signed)
--- NOTE | 2024-08-31 16:00 | CRLHL7_ITS ---
For Patients: As a result of the Century Cures Act, medical imaging exams and procedure reports are released immediately into your electronic medical record. You may view this report before your referring provider. If you have questions, please contact your health care provider. INDICATION: Excessive and frequent menstruation COMPARISON: None. TECHNIQUE: 2D awy-scale and color Doppler images were acquired of the pelvis using a transabdominal and transvaginal approach. Transvaginal imaging performed to better visualize the endometrial stripe and ovaries. FINDINGS: Fundal leiomyoma is present which measures 8.4 x 7.3 x 8.0 cm. Uterus measures 13.6 cm in length by 7.7 cm in AP diameter by 8.8 cm in transverse dimension. Endometrium measures 4.3 millimeters. The ovaries are not visualized due to the presence of bowel gas. There are no suspicious fluid collections within the cul-de-sac. IMPRESSION: Large fundal fibroid partially obscures the fundal endometrium and measures 8.4 x 7.3 x 8.0 cm. Visualized endometrial thickness 4 millimeters. Dictated by Everett Low MD @ 09/01/2024 5:34:19 AM (Electronically Signed)
== END 2024-08-31 15:04 | disposition home or self-care (01) ==
LOC: MAMMO 15:03
PROVIDERS: Visit Provider Obstetrics & Gynecology
DX: Z12.31 Encounter for screening mammogram for malignant neoplasm of breast (principal); R92.333 Mammographic heterogeneous density, bilateral breasts; N92.1 Excessive and frequent menstruation with irregular cycle; D25.9 Leiomyoma of uterus, unspecified; R93.89 Abnormal findings on diagnostic imaging of other specified body structures; N80.9 Endometriosis, unspecified; R10.2 Pelvic and perineal pain
CPT/HCPCS: 76830; 76856; 77063; 77067

== ENCOUNTER 2024-10-23 09:22 | Day surgery (SDC) | payer BC, SELFPAY ==
[2024-10-23] VITALS (20 sets, daily range): BP systolic 93–115; BP diastolic 48–73; PULSE 45–76; RESP 11–16; TEMP 36.1–36.8; O2SAT 93–100; BMI 24.3
[2024-10-23] MEDS: GABAPENTIN 600 MG TABLET PO (09:45)
[2024-10-23] MEDS: SCOPOLAMINE 1 MG/3 DAY PATCH 1 PATCH TRANSDERMA (09:45)
[2024-10-23] MEDS: ACETAMINOPHEN 500 MG TABLET 1000 MG PO (09:45)
[2024-10-23 09:50] LABS: Ur HCG Qualitative* Negative (Negative)
[2024-10-23] MEDS: SODIUM CHLORIDE 0.9 % (FLUSH) 10 ML SYRINGE IVF (10:00)
[2024-10-23] MEDS: LACTATED RINGERS 1000 ML 1,000 ML 100 ML IV ×2 (10:05→12:01)
[2024-10-23 10:06] LABS: Hemoglobin* 12.5 gm/dL (12.0-16.0)
--- NOTE | 2024-10-23 10:09 | W.PM.H&PU ---
History & Physical Update History & Physical Update H&P Reviewed and patient assessed: No changes noted
[2024-10-23 10:36] LABS: Creatinine* 0.7 mg/dL (0.5-1.5); Est. Creatinine Clearance* 98.25; Estimated Glomerular Filt Rate 104 ml/min
--- NOTE | 2024-10-23 12:17 | P.ANES_ITS ---
Anesthesia Charges Start Date/Time Anesthesia Start Date: 10/23/24 Anesthesia Start Time: 10:45 Stop Date/Time Anesthesia Stop Date: 10/23/24 Anesthesia Stop Time: 14:32 Coding CPT Codes CPT Codes: ANESTH SURG LOWER ABDOMEN - 30812 ([id number]) P1 - NORMAL HEALTHY PATIENT, QK - MECHANIC WELDER 2-4 CNCRNT ANES PROC, QX - GAS APPLIANCE MECHANIC SVMiesha W/ MED DIRECTION
--- NOTE | 2024-10-23 12:17 | W.ANESCHARGE ---
Anesthesia Charges Start Date/Time Anesthesia Start Date: 10/23/24 Anesthesia Start Time: 10:45 Stop Date/Time Anesthesia Stop Date: 10/23/24 Anesthesia Stop Time: 14:32 Coding CPT Codes CPT Codes: ANESTH SURG LOWER ABDOMEN - 76224 ([id number]) P1 - NORMAL HEALTHY PATIENT, QK - CHIROPRACTIC NEUROLOGIST 2-4 CNCRNT ANES PROC, QX - SHIP FASTENER SVMiesha W/ MED DIRECTION
--- NOTE | 2024-10-23 12:18 | W.PM.NB ---
Nerve Block Nerve Block Time Seen by Provider: 10:55 Date Seen: 10/23/24 Type of block requested by surgeon for post-operative analgesia: TAP Side: bilateral Time out performed: Yes Verification of patient name: Yes Verification of date of : Yes Site marking: site marked Name of person performing procedure: Hay Continuous monitoring Was continuous monitoring of O2 sat, B/P, registered nurse cardiac telemetry, recorded every 15 minutes?: Yes Procedure Checklist: sterile prep, needles and gloves Ultrasound guided. Images saved: Yes Medications given in 5ml increments after negative aspiration: Marcaine %: 0.25 mL: 30 Needle gauge: 20 and Exparel mL: 10 Patient tolerated procedure well: Yes Additional comments: Needle noted between internal oblique and transversus abdominus. Local spread visualized Block Charges Block Charge (with Pro Fee): TAP Bilateral Use of Ultrasound Machine for Block: Yes- US Guidance/pain block
[2024-10-23] MEDS: FLUORESCEIN 10% INJ 500 MG IVP (13:09)
[2024-10-23] MEDS: BUPIVACAINE 0.25% 30 ML INJECTION (13:09)
--- NOTE | 2024-10-23 14:31 | P.ANES_ITS ---
Anesthesia Charges Start Date/Time Anesthesia Start Date: 10/23/24 Anesthesia Start Time: 10:45 Stop Date/Time Anesthesia Stop Date: 10/23/24 Anesthesia Stop Time: 14:32 Coding CPT Codes CPT Codes: ANESTH SURG LOWER ABDOMEN - 23353 ([id number]) P1 - NORMAL HEALTHY PATIENT, QK - VACUUM CLEANER ASSEMBLER 2-4 CNCRNT ANES PROC, QX - SOLAR ENERGY ADVISOR SVMiesha W/ MED DIRECTION
--- NOTE | 2024-10-23 14:31 | W.ANESCHARGE ---
Anesthesia Charges Start Date/Time Anesthesia Start Date: 10/23/24 Anesthesia Start Time: 10:45 Stop Date/Time Anesthesia Stop Date: 10/23/24 Anesthesia Stop Time: 14:32 Coding CPT Codes CPT Codes: ANESTH SURG LOWER ABDOMEN - 59880 ([id number]) P1 - NORMAL HEALTHY PATIENT, QK - DOSIMETRIST 2-4 CNCRNT ANES PROC, QX - TECHNICAL STAFF ENGINEER SVMiesha W/ MED DIRECTION
--- NOTE | 2024-10-23 15:27 | SUR.PHASEI ---
pt became nauseous on ride over to unit. IV zofran pulled from PACU omnicell for MS RN. Total 100 IVF given in PACU, 150 Fentanyl and 200 UOP
[2024-10-23] MEDS: ONDANSETRON 2 MG/ML inj 4 MG IVP (15:32)
--- NOTE | 2024-10-23 16:34 | W.PM.GYNPROC ---
Procedure Note Date of procedure: 10/23/24 Will [facility] bill your pro fee for this procedure?: Yes Pre-op diagnosis: Dysmenorrhea and large uterine fibroid Post-op diagnosis: Same Procedure: Total laparoscopic hysterectomy with bilateral salpingectomy Cystoscopy Repair of vulvar lacerations Anesthesia: GETA Complications: Small, superficial left periurethral and shallow right vaginal introital lacerations, occurring during the process of vaginal morcellation the enlarged uterus. Surgeon: Nevaeh Garvin MD It Support Consultant: Ewelina Galaviz Estimated blood loss (mL): 100 IV fluids (mL): 1,600 Urine Output (mL): 600 Pathology: specimen obtained, sent to pathology (Uterus, cervix, bilateral Fallopian tubes) Condition: stable Disposition: PACU Findings: 1. Upon pelvic exam under anesthesia, the cervix was superior to and partially anterior to the pubic bone. The uterus was enlarged and the cul-de-sac was filled with the palpable fibroid. The vagina was normal in appearance. 2. Upon laparoscopy, survey of the upper abdomen revealed a normal appearance to the inferior edge of the liver, gallbladder and stomach. Bowels were grossly normal appearance, as was the appendix. Survey of the pelvis revealed an enlarged, retroverted uterus with a large fundal fibroid. The left tube and ovary were partially adherent to the posterior aspect of the fundal fibroid. Otherwise, bilateral tubes and ovaries were normal appearance. The cul-de-sac and bladder reflection were normal in appearance. 3. Upon cystoscopy, performed after completion of vaginal cuff closure, bilateral ureteral jets were noted and in a injury to the bladder mucosa was noted. Procedure Description: Patient was taken to the operating room with IV running. She received cefazolin in preoperative prophylaxis. She was positioned in dorsal lithotomy position with her legs fully supported in Yellofin stirrups. General anesthesia was administered. She was prepped and draped in the usual sterile fashion. Pelvic exam under anesthesia was performed for the above-noted findings. Speculum was inserted. Cervix was initially only partially visualized; the posterior lip was grasped and the cervix was thus brought down into the vagina, around the pubic bone. Cervix was dilated with Hegar dilators to accommodate the GMR Groupare uterine manipulator. A large-sized colpotomizer cup was selected. The tip of the uterine manipulator was inserted through the cervix into the uterine cavity and the balloon was inflated. The speculum was removed. The colpotomy cup was advanced, surrounding the cervix, and the proximal occluder was moved up along the shaft of the VCare and fixed in place. Baires catheter was placed. Patient's legs were then placed in neutral position. Attention was turned to patient's abdomen. Infraumbilical area was infiltrated with a small amount of Marcaine. An 11 mm infraumbilical incision was made with a scalpel and carried down to the underlying layer of fascia with the hemostat. 11 mm camera was placed within the 11 mm Fios Kii trocar, and advanced under direct visualization through the anterior abdominal wall into the peritoneal cavity, while tenting up the anterior abdominal wall. The trocar was removed. The balloon was inflated, holding the port in place. Pneumoperitoneum was achieved. Survey of the abdomen and pelvis revealed the above-noted findings. Three additional port sites were created. The first was in the patient's left lower quadrant, just superomedial to the left ASIS. The second was a hand's breadth superior to and slightly medial to the first. The third was in the patient's right lower quadrant, just superomedial to the right ASIS. An 11 mm incision was made in the left lower quadrant, and a 5 mm incision was made at the other 2 sites, after assuring that large vessels were out of harm's way. A 10 mm Fios Kii port was inserted at the left lower quadrant site, and a 5 mm Fios Kii port at each of the other 2 sites, under direct visualization and without complication. The balloon on each of the four ports was inflated, holding each in place. Attention was first turned to the posterior leaf of the broad ligament, which was opened laterally to mobilize some filmy adhesions to the sigmoid. Dissection was carried forward through the midportion of the left round ligament. The left round ligament was cauterized and transected with the LigaSure device. The bladder flap was created on the patient's left side, moving laterally to medially. The distal aspect of the left Fallopian tube was grasped and brought forward around the fundal fibroid. The blood supply of the left Fallopian tube was cauterized and transected. It was divided from the mesosalpinx moving laterally to medially, and the tube was then amputated at the left cornua. This was removed from the abdomen. The utero-ovarian ligament, slightly scarred to the posterior aspect of the fundal fibroid, was cauterized and transected. The left uterine artery was skeletonized and then cauterized with the LigaSure device. Using the colpotomizer cup as a guide, the peritoneum and underlying stroma was dissected off the anticipated site of colpotomy over the anterior vaginal fornix. fallopian tube, which was divided from the mesosalpinx, using the Thunderbeat bipolar cautery device, proceeding laterally to medially, and the tube was amputated at the left uterine cornua. This was removed through the port site and sent to pathology. This procedure was repeated on the patient's right side, and the right fallopian tube was also amputated at the cornua and removed from the patient's abdomen. This was also sent to pathology for further analysis. Attention was then turned to the right side of the uterus, where the right utero-ovarian ligament was cauterized and transected. The right round ligament was cauterized and transected, and the remnants of the right round ligament were cauterized and transected between these two structures. The bladder flap was created on the patient's right side, and dissection was carried laterally to medially, meeting the dissection where it had left off from the patient's right side. The right uterine artery was cauterized and transected with the LigaSure device. The bladder reflection was moved well below the colpotomizer cup anteriorly. The vaginal fornix was then entered anteriorly and along the patient's right side with monopolar cautery, using the colpotomizer cup as a guide. This device was moved along the circumference of the colpotomizer cup, requiring frequent readjustments of the enlarged uterus, until the uterus and cervix were freed from their attachments to the pelvis. Patient's legs were placed in lithotomy position. The uterus was pulled into the patient's vagina, and the uterine manipulator was removed. The uterus was bivalved anteriorly to posteriorly. The uterus, including the fundal fibroid, was morcellated sharply through the vagina, ultimately allowing for delivery through the vagina. A sterile glove with laparotomy sponges in it was placed within the vagina in order to maintain the pneumoperitoneum. The vulvar lacerations described above occurred in the context of vaginal morcellation, due to stretching of the introitus. The patient's legs were placed back in neutral position. Attention was returned to the patient's vagina. The vaginal cuff was closed with a series of interrupted sutures of 0 Vicryl. These were placed and tied intracorporeally. Ports were left in place but all instruments were removed and pneumoperitoneum was released. Patient's legs were placed back in lithotomy position. The sterile glove was removed from the vagina. Digital and speculum exams were performed, showing an intact cuff with no obvious active bleeding. The Baires catheter was removed from the bladder, and the cystoscope was assembled with saline inflow, outflow, and light cord in place. The patient was given IV sodium fluorescein prior to the cystoscopy. Cystoscope was advanced through the urethra into the bladder, and survey of the mucosa revealed a normal appearance. The bladder dome was intact. Bilateral ureteral jets were noted. Cystoscope was removed and Baires catheter replaced. Patient's legs were again placed in neutral position. Insufflator was reattached to the port and pneumoperitoneum again achieved. Survey of the pelvis revealed hemostasis. The 11 mm Fios Kii port in the left lower quadrant was removed after balloon on the port was deflated. The Sanjeev-Bart laparoscopic closure device was inserted through this port. With the help of this device, the fascia was closed with a single suture of 0-Vicryl. This procedure was repeated in the umbilical port site. Procedure was deemed complete. The balloons of the 2 remaining remaining port sites were deflated, and these 2 ports were removed after pneumoperitoneum was released. The skin of each port site was closed in a subcuticular fashion with 4 0 Monocryl. Surgical glue was applied above this. Finally, the above described shallow vulvar lacerations were repaired with 4-0 Vicryl sutures. Hemostasis was noted. Patient tolerated procedure well and was taken to recovery area in stable condition.
[2024-10-23 17:26] LABS: Hematocrit 34.0 % (33.0-51.0); Hemoglobin* 11.4 gm/dL (12.0-16.0); Immature Granulocytes Pct Auto 0.3 %; Mean Corpuscular HGB Conc 34 gm/dL (32-36); Mean Corpuscular Hemoglobin 33 pg (26-34); Mean Corpuscular Volume 98 fL (80-100); RDW Coefficient of Variation % 11.8 % (11.5-15.5); Red Blood Count 3.47 m/uL (4.00-5.20); White Blood Count* 14.71 K/uL (4.50-11.00)
[2024-10-23 17:28] LABS: Immature Granulocytes Abs Auto 0.00 K/uL (0.00-0.30); Lymphocytes Absolute Auto 0.70 K/uL (0.90-2.90); Slide Review Reflex No
[2024-10-23 17:41] LABS: INR 1.04 (0.91-1.10); Prothrombin Time 14.4 Seconds
--- NOTE | 2024-10-23 19:26 | PC.NURSE ---
End of Shift: Patient pleasant and cooperative, A&O. Patient was slightly bradycardic and hypotensive after surgery, asymptomatic, MD notified, all other VSS. Baires catheter patent and draining. Patient reported feeling nausea this shift, managed with PRN medication, see MAR.
[2024-10-23] MEDS: LACTATED RINGERS 1000 ML 1,000 ML 40 ML IV (22:09)
[2024-10-24 03:00] VITALS: BP 91/48; PULSE 54; RESP 16; O2SAT 99
[2024-10-24 06:27] LABS: Hemoglobin* 11.0 gm/dL (12.0-16.0)
[2024-10-24 06:45] LABS: Creatinine* 0.8 mg/dL (0.5-1.5); Est. Creatinine Clearance* 85.97; Estimated Glomerular Filt Rate 89 ml/min
[2024-10-24 07:00] VITALS: BP 103/58; PULSE 55; RESP 18; TEMP 36.7; O2SAT 99
--- NOTE | 2024-10-24 07:36 | PC.NURSE ---
The patient is reporting no pain, no longer nauseous and is ambulating. Bladder back fill has been completed and the woods has been removed, and the patient is voiding. 4 lap sites CDI, some soft BPS, although not symptomatic. Moderate amount of bleeding vaginally. Up independently. Sheela LI BSN
--- NOTE | 2024-10-24 09:18 | PM.GYNDS1 ---
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 Indication for surgery: Symptomatic fibroid uterus, with dysmenorrhea and menorrhagia. Intraoperative findings were notable for a large fundal fibroid in a retroverted uterus. The uterus was morcellated vaginally. There were minor lacerations of the vulva during the process, repaired with 4-0 Vicryl. Otherwise, surgery was uncomplicated with an EBL of 100 mL.. She tends to have lower blood pressures, and has shown this throughout the night. All other vital signs common including heart rate, have been reassuring. She has remained afebrile. Today, on postoperative day 1, she reports the pain is well controlled. She has been able to ambulate Without difficulty. She is tolerating regular diet. She is not yet passing flatus. Baires catheter has been removed, and she is voiding without difficulty. She has been taking oral contraceptives with 35 mcg of ethinyl estradiol. I recommended that she stop these pills, and we may discuss menopausal hormone therapy at her follow up visit depending on her symtpoms. Time Spent with Patient Time attestation: Total time spent providing and/or coordinating discharge services: SENIOR MICROSOFT CONSULTANT - Exam Physical Exam: Vital signs: Temp Pulse Resp BP Pulse Ox O2 Del Method 97.5 F L 54 L 16 91/48 L 99 Room Air 10/23/24 23:13 10/24/24 03:00 10/24/24 03:00 10/24/24 03:00 10/24/24 03:00 10/24/24 03:00 Narrative: General: Pleasant, no acute distress Heart: Regular rate and rhythm, no murmur or gallop Lungs: Clear to auscultation bilaterally Abdomen: Bowel sounds hypoactive but present, soft, no tenderness, rebound or guarding, no distension, laparoscopic incisions clean, dry, and intact. Lower extremities: No edema or erythema SENIOR MICROSOFT CONSULTANT - DS: Data Data Completed and Pending Labs on day of discharge: Labs from last 24 hours 10/24/24 10/23/24 10/23/24 06:13 17:20 10:00 WBC 14.71 H RBC 3.47 L Hgb 11.0 L 11.4 L 12.5 Hct 34.0 MCV 98 MCH 33 MCHC 34 RDW Coeff of Ephraim 11.8 Plt Count 221 Neut % (Auto) 92.9 H Lymph % (Auto) 4.7 L Ida % (Auto) 2.0 Eos % (Auto) 0.0 Baso % (Auto) 0.1 Neut # (Auto) 13.70 H Lymph # (Auto) 0.70 L Ida # (Auto) 0.30 Eos # (Auto) 0.00 Baso # (Auto) 0.00 Abs Immat Gran (auto) 0.00 Imm/Tot Granulo (auto) 0.3 INR 1.04 Creatinine 0.8 0.7 Estimated Creat Clear 85.97 98.25 Estimated GFR 89 104 Urine HCG, Qual Blood Type O Positive Antibody Screen NEGATIVE 10/23/24 09:30 WBC RBC Hgb Hct MCV MCH MCHC RDW Coeff of Ephraim Plt Count Neut % (Auto) Lymph % (Auto) Ida % (Auto) Eos % (Auto) Baso % (Auto) Neut # (Auto) Lymph # (Auto) Ida # (Auto) Eos # (Auto) Baso # (Auto) Abs Immat Gran (auto) Imm/Tot Granulo (auto) INR Creatinine Estimated Creat Clear Estimated GFR Urine HCG, Qual Negative Blood Type Antibody Screen Procedures Procedures: Procedures Operation Date: 10/23/24 11:00 Actual Procedure Side Surgeon p Total laparoscopic hysterectomy, Bilateral salpingectomy, Cystoscopy, Repair of Vulvar lacerations Left Nevaeh Garvin MD Discharge Plan Discharge Disposition: Home w/ Parent or Adult Discharging Surgeon: Nevaeh Garvin Follow-Up Appointment: 2 & 6 weeks Prescriptions: New acetaminophen 500 mg Tablet 1,000 mg PO Q6H PRNQty: 0 0RF docusate sodium 100 mg Capsule 100 mg PO BID PRN (Reason: Constipation) Qty: 0 0RF ibuprofen 600 mg Tablet 600 mg PO Q6H Qty: 0 0RF oxycodone 5 mg tablet 5 mg PO Q4H PRN (Reason: pain) Qty: 20 0RF Continued sumatriptan succinate 50 mg tablet 50 mg PO Q2H PRN (Reason: migraine headache) Rx Instructions: TAKE ONE TABLET BY MOUTH NEEDED. ONE TABLET AT ONSET OF HEADACHE, MAY REPEAT EVERY 2 HOURS NEEDED MAX OF 200MG/24 HOURS Discontinued ethynodiol diac-eth estradiol [Kelnor ()] 1-35 mg-mcg tablet 1 tab PO DAILY Qty: 28 1RF Activity Detail: as in patient instructions Discharge Diet: Regular Patient Instructions: Scopolamine (Absorbed through the skin) (Transderm Scop), General Anesthesia (DC), NH+C Laparoscopic Hysterectomy Follow-up: Nevaeh Garvin MD [Staff Physician, [facility]] Provider,Not a Local [Primary Care Provider, Family Practice] Discharge Orders: Discharge Order (Routine); Ordered 10/24/24 Ordered By: Nevaeh Garvin
[2024-10-24 11:00] VITALS: BP 103/58; PULSE 61; RESP 18; TEMP 36.6; O2SAT 99
--- NOTE | 2024-10-24 15:07 | PC.NURSE ---
Discharge: Patient pleasant and cooperative, A&O. VSS, afebrile. Denies pain and nausea this shift. Voiding. Tolerating regular diet. IV removed with tip intact. Discharge instructions provided, all questions answered. D/C to home with .
== END 2024-10-24 13:42 | disposition home or self-care (01) ==
LOC: OR 09:24 → MEDSURG 09:25
PROVIDERS: Visit Provider Obstetrics & Gynecology
PROC: 0UT94ZZ Resection of Uterus, Percutaneous Endoscopic Approach (ICD-10-PCS; CPT 58573; principal; 2024-10-23 11:00)
DX: N94.6 Dysmenorrhea, unspecified (principal); N92.0 Excessive and frequent menstruation with regular cycle; D25.1 Intramural leiomyoma of uterus; N84.0 Polyp of corpus uteri; N83.8 Other noninflammatory disorders of ovary, fallopian tube and broad ligament; G89.18 Other acute postprocedural pain; N99.71 Accidental puncture and laceration of a genitourinary system organ or structure during a genitourinary system procedure
CPT/HCPCS: 58573; 57200; 00840; 36415; 64488; 76942; 81025; 82565; 85018; 85025; 85610; 86850; 86900; 86901; 88307; A4314; A9270; J0330; J0665; J0666; J0690; J1100; J1171; J1885; J2405; J2704; J2710; J3010; J7120

== ENCOUNTER 2025-01-18 11:30 | Outpatient (CLI) | payer BC, SELFPAY | END 2025-01-18 11:31 | disposition home or self-care (01) | LOC: NFLDREF 01-21 12:27 | PROVIDERS: Visit Provider Obstetrics & Gynecology | DX: F52.0 Hypoactive sexual desire disorder (principal) | CPT/HCPCS: 84270; 84402; 84403; 84439; 84443 ==

== ENCOUNTER 2025-02-25 13:58 | Outpatient (CLI) | payer BC, SELFPAY | END 2025-02-25 13:59 | disposition home or self-care (01) | LOC: NFLDREF 03-03 09:19 | PROVIDERS: Visit Provider Obstetrics & Gynecology | DX: E05.90 Thyrotoxicosis, unspecified without thyrotoxic crisis or storm (principal) | CPT/HCPCS: 84439; 84443; 84480 ==